=== PATIENT | female | born 1960 | race Caucasian/White ===

== ENCOUNTER 2024-04-17 16:23 | Inpatient (IN) | payer OTHER ==
[~2024-04-17] VITALS: Ht 152.4 cm; Wt 54.0 kg
[2024-04-17 17:15] LABS: BASOPHILS % (AUTO) 0.5 % (0.0-2.0); EOSINOPHILS # (AUTO) 0.3 K/uL (0.0-0.7); EOSINOPHILS % (AUTO) 2.6 % (0.0-6.0); HEMATOCRIT 39 % (33-45); HEMOGLOBIN 13.1 g/dL (11.5-14.8); LYMPHOCYTES % (AUTO) 10.5 % (20.0-44.0); MEAN CORPUSCULAR HEMOGLOBIN 29 PG (26.0-33.0); MEAN CORPUSCULAR HGB CONC 34 g/dl (31.0-36.0); MEAN CORPUSCULAR VOLUME 85 fL (82-100); MONOCYTES # (AUTO) 0.6 K/uL (0.1-1.30); MONOCYTES % (AUTO) 6.4 % (2.0-12.0); NEUTROPHILS # (AUTO) 7.7 K/uL (1.8-8.9); PLATELET COUNT (AUTO) 298 K/uL (150-450); RED BLOOD CELL COUNT(AUTO) 4.55 MIL/uL (4.0-5.2); RED CELL DISTRIBUTION WIDTH 13.7 % (11.5-15.0); WHITE BLOOD COUNT (AUTO) 9.6 K/uL (4.3-11.0)
[2024-04-17 17:29] LABS: INR 1.13 (0.91-1.10); PARTIAL THROMBOPLASTIN TIME 27.5 SEC (24.3-34.3); PROTHROMBIN TIME 11.9 SECS (9.2-11.1)
[2024-04-17 17:30] LABS: CALCIUM, SERUM 10.3 mg/dL (8.5-10.1); CARBON DIOXIDE 27 mmol/L (21-32); CHLORIDE 103 mmol/L (98-107); CREATININE 1.2 mg/dL (0.6-1.3); GLUCOSE 98 mg/dL (74-106); POTASSIUM 4.3 mmol/L (3.5-5.1); SODIUM SERUM 139 mmol/L (136-145); UREA NITROGEN, BLOOD 22 mg/dL (7-18)
[2024-04-17 17:42] LABS: ALANINE AMINOTRANSFERASE 13 U/L (12-78); ALBUMIN 2.6 g/dL (3.4-5.0); ALKALINE PHOSPHATASE 225 U/L (46-116); ASPARTATE AMINOTRANSFERASE 19 U/L (15-37); BILIRUBIN,DIRECT 0.2 mg/dL (0.0-0.2); BILIRUBIN,TOTAL 0.6 mg/dL (0.2-1.0); NT-PRO BNP 71 pg/mL (0-125)
[2024-04-17] MEDS ORDERED: IOHEXOL-350 100 ML VIAL IV ONE (17:43)
[2024-04-17] MEDS ORDERED: IV NS 0.9% 250 ML IV ONE (17:43)
[2024-04-17] MEDS ORDERED: AMLO5TAB4 PO (18:50)
[2024-04-17] MEDS ORDERED: LEVO500T90 PO (18:50)
[2024-04-17] MEDS ORDERED: POTA-88 PO (18:50)
[2024-04-17] MEDS ORDERED: CEFTRIAXONE 1GM BAG (ER ONLY) 50 ML IV ONE (18:57)
[2024-04-17] MEDS: IV NS 0.9% 1,000 ML BAG IV ONE (19:03)
[2024-04-17] MEDS: CEFTRIAXONE 1GM BAG (ER ONLY) 50 ML IV ONE (19:05)
[2024-04-17] MEDS: AZITHROMYCIN 500 MG in IV D5W 250 ML IV ONE (19:30)
[2024-04-17] MEDS ORDERED: ONDANSETRON HCL/PF 4 MG/2 ML VIAL IVP PRN (22:00)
[2024-04-17] MEDS ORDERED: MAGNESIUM HYDROXIDE 30 ML UDC PO PRN (22:00)
[2024-04-17] MEDS ORDERED: Z GUARD REMEDY 4 OZ OINT TP PRN (22:00)
[2024-04-17] MEDS ORDERED: ZOLPIDEM TARTRATE 5 MG TABLET PO PRN (22:00)
[2024-04-17 22:40] VITALS: BP 114/47; TEMP 98.6; O2SAT 96
[2024-04-17] MEDS ORDERED: CEFEPIME 1 GM VIAL ONE (23:24)
[2024-04-17] MEDS: CEFEPIME 1 GM in IV D5W 50 ML IV SCH (23:36)
[2024-04-18] MEDS: IV 1/2NS 1000 ML 1,000 ML IV PRN (00:20)
[2024-04-18 04:19] VITALS: BP 114/47; TEMP 98.6; O2SAT 93
[2024-04-18 07:55] LABS: CALCIUM, SERUM 9.1 mg/dL (8.5-10.1); CREATININE 1.1 mg/dL (0.6-1.3); MAGNESIUM 2.4 mg/dL (1.8-2.4); PHOSPHORUS 3.5 mg/dL (2.5-4.9)
[2024-04-18 07:59] LABS: BASOPHILS % (AUTO) 0.4 % (0.0-2.0); EOSINOPHILS # (AUTO) 0.3 K/uL (0.0-0.7); EOSINOPHILS % (AUTO) 3.7 % (0.0-6.0); HEMATOCRIT 34 % (33-45); HEMOGLOBIN 11.5 g/dL (11.5-14.8); LYMPHOCYTES % (AUTO) 11.9 % (20.0-44.0); MEAN CORPUSCULAR HEMOGLOBIN 29 PG (26.0-33.0); MEAN CORPUSCULAR HGB CONC 34 g/dl (31.0-36.0); MEAN CORPUSCULAR VOLUME 85 fL (82-100); MONOCYTES # (AUTO) 0.8 K/uL (0.1-1.30); MONOCYTES % (AUTO) 8.7 % (2.0-12.0); NEUTROPHILS # (AUTO) 6.5 K/uL (1.8-8.9); NEUTROPHILS % (AUTO) 75.3 % (43.0-81.0); PLATELET COUNT (AUTO) 274 K/uL (150-450); RED CELL DISTRIBUTION WIDTH 13.7 % (11.5-15.0); WHITE BLOOD COUNT (AUTO) 8.7 K/uL (4.3-11.0)
[2024-04-18 08:00] VITALS: BP 114/59; TEMP 98.6; O2SAT 92
[2024-04-18] MEDS: AMLODIPINE BESYLATE 5 MG TABLET PO SCH (08:36)
[2024-04-18] MEDS: ENOXAPARIN SODIUM 40 MG/0.4 ML DISP.SYRIN SQ SCH (10:30)
[2024-04-18 16:00] VITALS: BP 111/91; TEMP 98.6; O2SAT 94
[2024-04-18 20:00] VITALS: BP 114/63; TEMP 98.4; O2SAT 91
[2024-04-18] MEDS: BENZONATATE 100 MG CAPSULE PO PRN (22:07)
[2024-04-19] MEDS: ACETAMINOPHEN 325 MG TABLET PO PRN (01:54)
[2024-04-19 07:00] VITALS: BP 133/72; TEMP 98.1; O2SAT 91
[2024-04-19] MEDS ORDERED: CT SWABBABLE VALVE TRANS SET 1 EA INFUS.SET MC ONE (12:22)
[2024-04-19] MEDS ORDERED: IOHEXOL-300 100 ML VIAL IV ONE (12:22)
[2024-04-19] MEDS ORDERED: IV NS 0.9% 250 ML IV ONE (12:23)
[2024-04-19 16:32] VITALS: BP 120/70; TEMP 99.3; O2SAT 93
[2024-04-19 21:00] VITALS: BP 107/52; TEMP 99.5; O2SAT 90
[2024-04-20] VITALS (23 sets, daily range): BP systolic 91–145; BP diastolic 56–91; TEMP 97–98.9; O2SAT 88–98
[2024-04-20 01:19] LABS: ABG BASE EXCESS -1.3 mmol/L (-2.0-3.0); ABG OXYGEN SATURATION 94.1 % (94.0-98.0); ABG PCO2 33.7 mmHg (32.0-45.0); ABG PH 7.437 (7.350-7.450); ABG PO2 72.3 mmHg (83.0-108.0); ABG TOTAL HEMOGLOBIN 13.8 G/dL (12.0-16.0); COHb 0.4 % (0.5-1.5); MetHb 0.2 % (0.0-1.5); O2Hb 93.5 % (94.0-97.0); SITE, ABG LEFT RADIAL
[2024-04-20 08:08] LABS: CANCER AG, 15-3 45.3 U/mL (0.0-25.0)
[2024-04-20 08:51] LABS: BASOPHILS % (AUTO) 0.4 % (0.0-2.0); EOSINOPHILS # (AUTO) 0.1 K/uL (0.0-0.7); EOSINOPHILS % (AUTO) 0.8 % (0.0-6.0); HEMATOCRIT 38 % (33-45); LYMPHOCYTES # (AUTO) 1.3 K/uL (0.8-4.8); LYMPHOCYTES % (AUTO) 9.6 % (20.0-44.0); MEAN CORPUSCULAR HEMOGLOBIN 29 PG (26.0-33.0); MEAN CORPUSCULAR HGB CONC 34 g/dl (31.0-36.0); MEAN CORPUSCULAR VOLUME 84 fL (82-100); MONOCYTES # (AUTO) 0.7 K/uL (0.1-1.30); MONOCYTES % (AUTO) 5.3 % (2.0-12.0); NEUTROPHILS # (AUTO) 11.1 K/uL (1.8-8.9); NEUTROPHILS % (AUTO) 83.9 % (43.0-81.0); PLATELET COUNT (AUTO) 301 K/uL (150-450); RED BLOOD CELL COUNT(AUTO) 4.55 MIL/uL (4.0-5.2); RED CELL DISTRIBUTION WIDTH 13.5 % (11.5-15.0); WHITE BLOOD COUNT (AUTO) 13.2 K/uL (4.3-11.0)
[2024-04-20 10:26] LABS: ABG BASE EXCESS 1.8 mmol/L (-2.0-3.0); ABG OXYGEN SATURATION 90.6 % (94.0-98.0); ABG PH 7.473 (7.350-7.450); ABG PO2 57.2 mmHg (83.0-108.0); ABG TOTAL HEMOGLOBIN 13.2 G/dL (12.0-16.0); COHb 0.2 % (0.5-1.5); MetHb 0.2 % (0.0-1.5); O2Hb 90.2 % (94.0-97.0); SITE, ABG LEFT RADIAL
[2024-04-20] MEDS ORDERED: VANCOMYCIN 1 GM in IV D5W 250 ML IV ONE (14:00)
[2024-04-20 17:24] LABS: CALCIUM, SERUM 9.5 mg/dL (8.5-10.1); POTASSIUM 3.5 mmol/L (3.5-5.1)
[2024-04-20] MEDS: VANCOMYCIN 1 GM in IV D5W 250 ML IV ONE (18:04)
[2024-04-21] VITALS (32 sets, daily range): BP systolic 94–135; BP diastolic 50–123; TEMP 98–98.8; O2SAT 85–93
[2024-04-21] MEDS: VANCOMYCIN 500 MG in IV D5W 100ml IV SCH (05:03)
[2024-04-21 05:23] LABS: CALCIUM, SERUM 9.9 mg/dL (8.5-10.1); CREATININE 0.9 mg/dL (0.6-1.3); POTASSIUM 3.3 mmol/L (3.5-5.1)
[2024-04-21] MEDS: CEFEPIME 2 GM in IV D5W 100 ML IV SCH (10:30)
[2024-04-21] MEDS: POTASSIUM CHLORIDE 20 MEQ TAB.PRT.SR PO SCH (12:23)
[2024-04-21] MEDS: LEVOFLOXACIN (250MG) 250 MG TABLET PO SCH (14:10)
[2024-04-21 16:07] LABS: BASOPHILS # (AUTO) 0.1 K/uL (0.0-0.2); BASOPHILS % (AUTO) 0.7 % (0.0-2.0); EOSINOPHILS # (AUTO) 0.2 K/uL (0.0-0.7); HEMATOCRIT 38 % (33-45); HEMOGLOBIN 12.8 g/dL (11.5-14.8); LYMPHOCYTES # (AUTO) 0.7 K/uL (0.8-4.8); LYMPHOCYTES % (AUTO) 6.9 % (20.0-44.0); MEAN CORPUSCULAR HEMOGLOBIN 28 PG (26.0-33.0); MEAN CORPUSCULAR HGB CONC 34 g/dl (31.0-36.0); MEAN CORPUSCULAR VOLUME 83 fL (82-100); MONOCYTES # (AUTO) 0.7 K/uL (0.1-1.30); MONOCYTES % (AUTO) 6.4 % (2.0-12.0); NEUTROPHILS # (AUTO) 8.5 K/uL (1.8-8.9); PLATELET COUNT (AUTO) 332 K/uL (150-450); RED BLOOD CELL COUNT(AUTO) 4.56 MIL/uL (4.0-5.2); RED CELL DISTRIBUTION WIDTH 13.7 % (11.5-15.0); WHITE BLOOD COUNT (AUTO) 10.2 K/uL (4.3-11.0)
[2024-04-21 16:36] LABS: D-DIMER 3.66 mg/L(FEU (0.17-0.50); INR 1.22 (0.91-1.10); PROTHROMBIN TIME 12.8 SECS (9.2-11.1)
[2024-04-21] MEDS: VANCOMYCIN 750 MG in IV D5W 250 ML IV SCH (17:36)
[2024-04-21] MEDS: MEROPENEM 1 G in IV NS 0.9% 100 ML IV ONE (21:06)
[2024-04-22] VITALS (36 sets, daily range): BP systolic 82–149; BP diastolic 45–113; TEMP 98–98.3; O2SAT 81–94
[2024-04-22 06:02] LABS: BASOPHILS % (AUTO) 0.1 % (0.0-2.0); EOSINOPHILS # (AUTO) 0.1 K/uL (0.0-0.7); EOSINOPHILS % (AUTO) 1.2 % (0.0-6.0); HEMATOCRIT 40 % (33-45); HEMOGLOBIN 13.1 g/dL (11.5-14.8); LYMPHOCYTES # (AUTO) 0.9 K/uL (0.8-4.8); LYMPHOCYTES % (AUTO) 8.1 % (20.0-44.0); MEAN CORPUSCULAR HEMOGLOBIN 28 PG (26.0-33.0); MEAN CORPUSCULAR HGB CONC 33 g/dl (31.0-36.0); MEAN CORPUSCULAR VOLUME 86 fL (82-100); MONOCYTES # (AUTO) 0.6 K/uL (0.1-1.30); MONOCYTES % (AUTO) 5.7 % (2.0-12.0); NEUTROPHILS # (AUTO) 9.3 K/uL (1.8-8.9); NEUTROPHILS % (AUTO) 84.9 % (43.0-81.0); PLATELET COUNT (AUTO) 321 K/uL (150-450); RED BLOOD CELL COUNT(AUTO) 4.64 MIL/uL (4.0-5.2); RED CELL DISTRIBUTION WIDTH 13.7 % (11.5-15.0)
[2024-04-22 06:04] LABS: INR 1.18 (0.91-1.10); PARTIAL THROMBOPLASTIN TIME 28.5 SEC (24.3-34.3); PROTHROMBIN TIME 12.4 SECS (9.2-11.1)
[2024-04-22 06:18] LABS: D-DIMER 7.17 mg/L(FEU (0.17-0.50)
[2024-04-22 06:32] LABS: CALCIUM, SERUM 10.6 mg/dL (8.5-10.1); CREATININE 0.9 mg/dL (0.6-1.3); POTASSIUM 3.9 mmol/L (3.5-5.1)
[2024-04-22] MEDS: MEROPENEM 1 G in IV NS 0.9% 100 ML IV SCH (08:49)
[2024-04-22] MEDS: POLYETHYLENE GLYCOL 3350 17 GM POWD.PACK PO SCH (21:00)
[2024-04-23] VITALS (31 sets, daily range): BP systolic 105–158; BP diastolic 76–121; TEMP 97.7–98.2; O2SAT 83–97
[2024-04-23] MEDS: MAG HYDROX/AL HYDROX/SIMETH 30 ML UDC PO PRN (05:33)
[2024-04-23 05:41] LABS: CALCIUM, SERUM 10.3 mg/dL (8.5-10.1); POTASSIUM 3.3 mmol/L (3.5-5.1)
[2024-04-23] MEDS: POTASSIUM CHLORIDE 20 MEQ TAB.PRT.SR PO ONE (06:49)
[2024-04-23 09:00] LABS: ABG BASE EXCESS 3.5 mmol/L (-2.0-3.0); ABG OXYGEN SATURATION 77.6 % (94.0-98.0); ABG PCO2 38.7 mmHg (32.0-45.0); ABG PH 7.467 (7.350-7.450); ABG PO2 41.4 mmHg (83.0-108.0); ABG TOTAL HEMOGLOBIN 13.5 G/dL (12.0-16.0); COHb 0.3 % (0.5-1.5); MetHb 0.1 % (0.0-1.5); O2Hb 77.3 % (94.0-97.0); SITE, ABG LEFT BRACHIAL
[2024-04-24] VITALS (24 sets, daily range): BP systolic 90–162; BP diastolic 60–117; TEMP 97.5–98.6; O2SAT 88–98
[2024-04-24 05:12] LABS: CALCIUM, SERUM 10.3 mg/dL (8.5-10.1); CREATININE 0.9 mg/dL (0.6-1.3); POTASSIUM 3.7 mmol/L (3.5-5.1)
[2024-04-24] MEDS: IV D5W 1,000 ML IV SCH (09:07)
[2024-04-24] MEDS: VANCOMYCIN 500 MG in IV D5W 100ml IV SCH (11:19)
[2024-04-25] VITALS (26 sets, daily range): BP systolic 65–151; BP diastolic 36–105; TEMP 97.8–98.3; O2SAT 90–99
[2024-04-25 04:42] LABS: BASOPHILS % (AUTO) 0.2 % (0.0-2.0); EOSINOPHILS # (AUTO) 0.3 K/uL (0.0-0.7); EOSINOPHILS % (AUTO) 1.6 % (0.0-6.0); HEMATOCRIT 39 % (33-45); HEMOGLOBIN 12.7 g/dL (11.5-14.8); LYMPHOCYTES % (AUTO) 6.1 % (20.0-44.0); MEAN CORPUSCULAR HEMOGLOBIN 28 PG (26.0-33.0); MEAN CORPUSCULAR HGB CONC 33 g/dl (31.0-36.0); MEAN CORPUSCULAR VOLUME 85 fL (82-100); MONOCYTES # (AUTO) 0.8 K/uL (0.1-1.30); MONOCYTES % (AUTO) 4.6 % (2.0-12.0); NEUTROPHILS # (AUTO) 14.3 K/uL (1.8-8.9); NEUTROPHILS % (AUTO) 87.5 % (43.0-81.0); PLATELET COUNT (AUTO) 296 K/uL (150-450); RED CELL DISTRIBUTION WIDTH 13.7 % (11.5-15.0); WHITE BLOOD COUNT (AUTO) 16.4 K/uL (4.3-11.0)
[2024-04-25 05:04] LABS: INR 1.41 (0.91-1.10); PROTHROMBIN TIME 14.6 SECS (9.2-11.1)
[2024-04-25 05:09] LABS: D-DIMER 8.77 mg/L(FEU (0.17-0.50)
[2024-04-25 05:14] LABS: CALCIUM, SERUM 9.9 mg/dL (8.5-10.1); CREATININE 0.8 mg/dL (0.6-1.3); POTASSIUM 3.3 mmol/L (3.5-5.1)
[2024-04-25] MEDS: POTASSIUM CL. PREMIX PERIPHER. 50 ML IV SCH (06:41)
[2024-04-25] MEDS: IV D5W 1,000 ML IV ONE (12:03)
[2024-04-25] MEDS: KETOROLAC TROMETHAMINE 15 MG/ML VIAL IV PRN (15:11)
[2024-04-25 20:40] LABS: APPEARANCE,URINE CLEAR (CLEAR); BILIRUBIN,URINE NEGATIVE (NEGATIVE); BLOOD, URINE TRACE-INTA Ery/uL (NEGATIVE); COLOR,URINE YELLOW (YELLOW); KETONES,URINE NEGATIVE (NEGATIVE); LEUKOCYTE ESTERASE ,URINE NEGATIVE (NEGATIVE); NITRITE, URINE NEGATIVE (NEGATIVE); PROTEIN,URINE TRACE mg/dl (NEGATIVE); UGLUCOSE 2+ mg/dL (NEGATIVE); UROBILINOGEN,URINE 0.2 EU/dL (0.2)
[2024-04-25 20:48] LABS: CREATININE, URINE 70.1 MG/DL (30.0-125.0); URINE TOTAL PROTEIN 54.5 mg/dL (0-11.9)
[2024-04-25 21:06] LABS: *MYCOPLASMA PNEUMONIAE IgG <100 U/mL (0-99); *MYCOPLASMA PNEUMONIAE IgM <770 U/mL (0-769)
[2024-04-25 22:25] LABS: ADD URINE CULTURE NO; BACTERIA,URINE Few /HPF (None Seen); RBC,URINE 0-2 /HPF (0-2); SQUAMOUS EPITHELIAL CELL,UR Few /HPF (None Seen); WBC,URINE 0-2 /HPF (0-3)
[2024-04-25 22:26] LABS: MUCUS,URINE Rare /LPF (None Seen)
[2024-04-25 22:48] LABS: EOSINOPHIL,URINE None Seen
[2024-04-26] VITALS (25 sets, daily range): BP systolic 87–143; BP diastolic 10–108; TEMP 97.5–98.3; O2SAT 85–95
[2024-04-26 05:10] LABS: BASOPHILS % (AUTO) 0.1 % (0.0-2.0); EOSINOPHILS # (AUTO) 0.4 K/uL (0.0-0.7); EOSINOPHILS % (AUTO) 2.4 % (0.0-6.0); HEMATOCRIT 42 % (33-45); HEMOGLOBIN 13.6 g/dL (11.5-14.8); LYMPHOCYTES # (AUTO) 1.2 K/uL (0.8-4.8); LYMPHOCYTES % (AUTO) 7.9 % (20.0-44.0); MEAN CORPUSCULAR HEMOGLOBIN 28 PG (26.0-33.0); MEAN CORPUSCULAR HGB CONC 33 g/dl (31.0-36.0); MEAN CORPUSCULAR VOLUME 85 fL (82-100); MONOCYTES # (AUTO) 0.5 K/uL (0.1-1.30); MONOCYTES % (AUTO) 3.6 % (2.0-12.0); NEUTROPHILS # (AUTO) 12.6 K/uL (1.8-8.9); PLATELET COUNT (AUTO) 222 K/uL (150-450); RED CELL DISTRIBUTION WIDTH 13.8 % (11.5-15.0); WHITE BLOOD COUNT (AUTO) 14.7 K/uL (4.3-11.0)
[2024-04-26 05:23] LABS: CALCIUM, SERUM 9.3 mg/dL (8.5-10.1); CREATININE 0.8 mg/dL (0.6-1.3); POTASSIUM 4.1 mmol/L (3.5-5.1)
[2024-04-26 05:32] LABS: INR 1.56 (0.91-1.10); PARTIAL THROMBOPLASTIN TIME 28.6 SEC (24.3-34.3); PROTHROMBIN TIME 16.1 SECS (9.2-11.1)
[2024-04-26 05:33] LABS: D-DIMER 11.62 mg/L(FEU (0.17-0.50)
[2024-04-26 08:51] LABS: ABG BASE EXCESS 2.2 mmol/L (-2.0-3.0); ABG OXYGEN SATURATION 87.4 % (94.0-98.0); ABG PCO2 35.8 mmHg (32.0-45.0); ABG PH 7.471 (7.350-7.450); ABG PO2 50.9 mmHg (83.0-108.0); ABG TOTAL HEMOGLOBIN 14.1 G/dL (12.0-16.0); COHb 0.3 % (0.5-1.5); MetHb 0.3 % (0.0-1.5); O2Hb 86.9 % (94.0-97.0); SITE, ABG LEFT RADIAL
[2024-04-26] MEDS ORDERED: TPN/PPN PER PHARMACY IV PRN (09:30)
[2024-04-26] MEDS: PPN BAG #1 IV SCH (10:43)
[2024-04-26] MEDS: ZITHROMAX 500 MG/250 ML D5W IV SCH (11:07)
[2024-04-26] MEDS: Sodium Phosphate 15 MMOL in IV NS 0.9% 245 ML IV SCH (13:58)
[2024-04-26 17:10] LABS: LEGIONELLA PNEUMOPHILIA AB Non Reactive (Non Reactive)
[2024-04-27] VITALS (72 sets, daily range): BP systolic 64–191; BP diastolic 30–174; TEMP 98–98.7; O2SAT 77–92
[2024-04-27] MEDS: VANCOMYCIN 750 MG in IV D5W 250 ML IV SCH (00:06)
[2024-04-27] MEDS: hydrALAZINE HCL IV 20 MG VIAL IV PRN (01:13)
[2024-04-27] MEDS: ACETAMINOPHEN 650 MG/SUPP.RECT RC PRN (02:03)
[2024-04-27 05:09] LABS: VIT D, 25-HYDROXY 20.3 ng/mL (30.0-100.0)
[2024-04-27 05:41] LABS: BASOPHILS % (AUTO) 0.1 % (0.0-2.0); EOSINOPHILS # (AUTO) 0.1 K/uL (0.0-0.7); EOSINOPHILS % (AUTO) 0.8 % (0.0-6.0); HEMATOCRIT 40 % (33-45); HEMOGLOBIN 13.2 g/dL (11.5-14.8); LYMPHOCYTES % (AUTO) 6.6 % (20.0-44.0); MEAN CORPUSCULAR HEMOGLOBIN 28 PG (26.0-33.0); MEAN CORPUSCULAR HGB CONC 33 g/dl (31.0-36.0); MEAN CORPUSCULAR VOLUME 84 fL (82-100); MONOCYTES # (AUTO) 0.6 K/uL (0.1-1.30); MONOCYTES % (AUTO) 3.9 % (2.0-12.0); NEUTROPHILS # (AUTO) 13.7 K/uL (1.8-8.9); NEUTROPHILS % (AUTO) 88.6 % (43.0-81.0); PLATELET COUNT (AUTO) 235 K/uL (150-450); RED BLOOD CELL COUNT(AUTO) 4.72 MIL/uL (4.0-5.2); RED CELL DISTRIBUTION WIDTH 13.6 % (11.5-15.0); WHITE BLOOD COUNT (AUTO) 15.5 K/uL (4.3-11.0)
[2024-04-27 05:42] LABS: CALCIUM, SERUM 8.7 mg/dL (8.5-10.1); CREATININE 0.7 mg/dL (0.6-1.3); MAGNESIUM 2.4 mg/dL (1.8-2.4); PHOSPHORUS 2.6 mg/dL (2.5-4.9); POTASSIUM 4.2 mmol/L (3.5-5.1)
[2024-04-27] MEDS: FAT EMULSION 20% 500 ML in PREMIX 1 EA IV SCH (09:00)
[2024-04-27] MEDS: PROPOFOL 100 ML IV PRN ×2 (09:30→18:07)
[2024-04-27] MEDS: PHENYLEPHRINE 50 MG in IV NS 0.9% 245 ML IV PRN (10:56)
[2024-04-27] MEDS: PPN BAG #2 IV SCH (12:14)
[2024-04-27 13:39] LABS: ABG BASE EXCESS 3.3 mmol/L (-2.0-3.0); ABG OXYGEN SATURATION 85.3 % (94.0-98.0); ABG PCO2 33.6 mmHg (32.0-45.0); ABG PH 7.507 (7.350-7.450); ABG PO2 47.8 mmHg (83.0-108.0); ABG TOTAL HEMOGLOBIN 13.1 G/dL (12.0-16.0); COHb 0.4 % (0.5-1.5); MetHb 0.3 % (0.0-1.5); O2Hb 84.7 % (94.0-97.0); PEEP,BG 10 cm H2O; SITE, ABG RIGHT RADIAL; VT, ABG 470 mL
[2024-04-27] MEDS ORDERED: ETOMIDATE 2 MG/ML VIAL IV ONE (16:06)
[2024-04-28] VITALS (99 sets, daily range): BP systolic 85–126; BP diastolic 32–72; TEMP 98–98.7; O2SAT 84–92
[2024-04-28 05:38] LABS: BASOPHILS % (AUTO) 0.1 % (0.0-2.0); EOSINOPHILS # (AUTO) 1.1 K/uL (0.0-0.7); EOSINOPHILS % (AUTO) 5.3 % (0.0-6.0); HEMATOCRIT 34 % (33-45); HEMOGLOBIN 11.2 g/dL (11.5-14.8); LYMPHOCYTES % (AUTO) 9.9 % (20.0-44.0); MEAN CORPUSCULAR HEMOGLOBIN 28 PG (26.0-33.0); MEAN CORPUSCULAR HGB CONC 33 g/dl (31.0-36.0); MEAN CORPUSCULAR VOLUME 85 fL (82-100); MONOCYTES # (AUTO) 0.8 K/uL (0.1-1.30); MONOCYTES % (AUTO) 3.7 % (2.0-12.0); NEUTROPHILS # (AUTO) 16.5 K/uL (1.8-8.9); PLATELET COUNT (AUTO) 292 K/uL (150-450); RED BLOOD CELL COUNT(AUTO) 3.99 MIL/uL (4.0-5.2); RED CELL DISTRIBUTION WIDTH 13.9 % (11.5-15.0); WHITE BLOOD COUNT (AUTO) 20.4 K/uL (4.3-11.0)
[2024-04-28 05:49] LABS: INR 1.1 (0.91-1.10); PARTIAL THROMBOPLASTIN TIME 31.4 SEC (24.3-34.3); PROTHROMBIN TIME 11.6 SECS (9.2-11.1)
[2024-04-28 05:52] LABS: CALCIUM, SERUM 9.3 mg/dL (8.5-10.1); CREATININE 1.1 mg/dL (0.6-1.3); MAGNESIUM 2.1 mg/dL (1.8-2.4); PHOSPHORUS 2.4 mg/dL (2.5-4.9); POTASSIUM 3.1 mmol/L (3.5-5.1)
[2024-04-28 06:02] LABS: D-DIMER 7.43 mg/L(FEU (0.17-0.50)
[2024-04-28 08:42] LABS: ABG BASE EXCESS 1.8 mmol/L (-2.0-3.0); ABG OXYGEN SATURATION 86.1 % (94.0-98.0); ABG PCO2 36.9 mmHg (32.0-45.0); ABG PH 7.457 (7.350-7.450); ABG PO2 52.3 mmHg (83.0-108.0); COHb 0.2 % (0.5-1.5); MetHb 0.3 % (0.0-1.5); O2Hb 85.7 % (94.0-97.0); SITE, ABG RIGHT BRACHIAL; VT, ABG 450 mL
[2024-04-28] MEDS: POTASSIUM CL. PREMIX PERIPHER. 50 ML IV SCH (09:04)
[2024-04-28] MEDS ORDERED: CHOLECALCIFEROL (VITAMIN D 3) 400 UNIT TABLET PO SCH (11:30)
[2024-04-28 12:17] LABS: ABG BASE EXCESS 2.5 mmol/L (-2.0-3.0); ABG OXYGEN SATURATION 85.5 % (94.0-98.0); ABG PCO2 45.5 mmHg (32.0-45.0); ABG PH 7.403 (7.350-7.450); ABG PO2 56.4 mmHg (83.0-108.0); ABG TOTAL HEMOGLOBIN 13.1 G/dL (12.0-16.0); COHb 0.3 % (0.5-1.5); O2Hb 85.2 % (94.0-97.0); PEEP,BG 14 cm H2O; SITE, ABG RIGHT BRACHIAL; VT, ABG 400 mL
[2024-04-28] MEDS: PPN BAG #3 IV SCH (13:40)
[2024-04-28] MEDS: PANTOPRAZOLE 40 MG VIAL IV SCH (13:41)
[2024-04-28] MEDS: Sodium Phosphate 15 MMOL in IV NS 0.9% 245 ML IV SCH (14:52)
[2024-04-29] VITALS (54 sets, daily range): BP systolic 77–123; BP diastolic 31–84; TEMP 97.6–99.5; O2SAT 77–91
[2024-04-29 06:02] LABS: INR 1.02 (0.91-1.10); PARTIAL THROMBOPLASTIN TIME 32.8 SEC (24.3-34.3); PROTHROMBIN TIME 10.8 SECS (9.2-11.1)
[2024-04-29 06:47] LABS: D-DIMER 7.64 mg/L(FEU (0.17-0.50)
[2024-04-29 06:56] LABS: CALCIUM, SERUM 9.1 mg/dL (8.5-10.1); CREATININE 1.2 mg/dL (0.6-1.3); MAGNESIUM 2.2 mg/dL (1.8-2.4); PHOSPHORUS 5.8 mg/dL (2.5-4.9)
[2024-04-29 08:43] LABS: BASOPHILS % (AUTO) 0.2 % (0.0-2.0); EOSINOPHILS % (AUTO) 5.4 % (0.0-6.0); HEMATOCRIT 36 % (33-45); HEMOGLOBIN 11.5 g/dL (11.5-14.8); LYMPHOCYTES # (AUTO) 1.4 K/uL (0.8-4.8); LYMPHOCYTES % (AUTO) 7.6 % (20.0-44.0); MEAN CORPUSCULAR HEMOGLOBIN 28 PG (26.0-33.0); MEAN CORPUSCULAR HGB CONC 32 g/dl (31.0-36.0); MEAN CORPUSCULAR VOLUME 87 fL (82-100); MONOCYTES # (AUTO) 0.8 K/uL (0.1-1.30); MONOCYTES % (AUTO) 4.4 % (2.0-12.0); NEUTROPHILS # (AUTO) 15.4 K/uL (1.8-8.9); NEUTROPHILS % (AUTO) 82.4 % (43.0-81.0); PLATELET COUNT (AUTO) 260 K/uL (150-450); RED BLOOD CELL COUNT(AUTO) 4.14 MIL/uL (4.0-5.2); RED CELL DISTRIBUTION WIDTH 14.3 % (11.5-15.0); WHITE BLOOD COUNT (AUTO) 18.7 K/uL (4.3-11.0)
[2024-04-29 10:58] LABS: ABG BASE EXCESS -5.1 mmol/L (-2.0-3.0); ABG OXYGEN SATURATION 86.4 % (94.0-98.0); ABG PCO2 71.9 mmHg (32.0-45.0); ABG PH 7.159 (7.350-7.450); ABG PO2 61.3 mmHg (83.0-108.0); ABG TOTAL HEMOGLOBIN 13.5 G/dL (12.0-16.0); COHb 0.3 % (0.5-1.5); MetHb 0.4 % (0.0-1.5); O2Hb 85.8 % (94.0-97.0); SITE, ABG RIGHT BRACHIAL; VT, ABG 350 mL
[2024-04-29] MEDS ORDERED: DEXTROSE 50%-WATER 50 ML DISP.SYRIN IV PRN (14:00)
[2024-04-29] MEDS: PPN BAG #4 IV SCH (14:37)
[2024-04-29] MEDS: BLOOD SUGAR DIAGNOSTIC 1 EACH STRIP IN SCH (17:11)
[2024-04-30] VITALS (95 sets, daily range): BP systolic 75–149; BP diastolic 36–83; TEMP 98.2–100.1; O2SAT 74–88
[2024-04-30 05:09] LABS: BASOPHILS % (AUTO) 0.2 % (0.0-2.0); EOSINOPHILS # (AUTO) 0.4 K/uL (0.0-0.7); EOSINOPHILS % (AUTO) 2.1 % (0.0-6.0); HEMATOCRIT 35 % (33-45); HEMOGLOBIN 11.4 g/dL (11.5-14.8); LYMPHOCYTES % (AUTO) 5.1 % (20.0-44.0); MEAN CORPUSCULAR HEMOGLOBIN 28 PG (26.0-33.0); MEAN CORPUSCULAR HGB CONC 33 g/dl (31.0-36.0); MEAN CORPUSCULAR VOLUME 86 fL (82-100); MONOCYTES # (AUTO) 0.9 K/uL (0.1-1.30); NEUTROPHILS # (AUTO) 16.5 K/uL (1.8-8.9); NEUTROPHILS % (AUTO) 87.6 % (43.0-81.0); PLATELET COUNT (AUTO) 257 K/uL (150-450); RED CELL DISTRIBUTION WIDTH 14.2 % (11.5-15.0); WHITE BLOOD COUNT (AUTO) 18.8 K/uL (4.3-11.0)
[2024-04-30 05:21] LABS: CALCIUM, SERUM 8.3 mg/dL (8.5-10.1); CREATININE 1.4 mg/dL (0.6-1.3); PHOSPHORUS 5.5 mg/dL (2.5-4.9); POTASSIUM 4.5 mmol/L (3.5-5.1)
[2024-04-30] MEDS: INSULIN REGULAR, HUMAN 100 UNIT/ML 3 ML VIAL SQ PRN (06:02)
[2024-04-30 06:12] LABS: EOSINOPHILS % (MANUAL) 3 % (0-4); LYMPHOCYTES % (MANUAL) 7 % (16-48); MONOCYTES % (MANUAL) 9 % (0-11.0); MYELOCYTES % 1 % (0-0); NEUTROPHILS % (MANUAL) 80 (42-76); PLATELET ESTIMATE ADEQUATE
[2024-04-30] MEDS: PPN BAG #5 IV SCH (10:55)
[2024-04-30 10:58] LABS: ABG OXYGEN SATURATION 81.5 % (94.0-98.0); ABG PCO2 65.3 mmHg (32.0-45.0); ABG PH 7.109 (7.350-7.450); ABG PO2 54.5 mmHg (83.0-108.0); ABG TOTAL HEMOGLOBIN 12.8 G/dL (12.0-16.0); COHb 0.1 % (0.5-1.5); MetHb 0.4 % (0.0-1.5); O2Hb 81.1 % (94.0-97.0); PEEP,BG 16 cm H2O; SITE, ABG LEFT RADIAL; VT, ABG 350 mL
[2024-04-30 14:12] LABS: ABG BASE EXCESS -10.1 mmol/L (-2.0-3.0); ABG OXYGEN SATURATION 84.3 % (94.0-98.0); ABG PH 7.117 (7.350-7.450); ABG PO2 54.3 mmHg (83.0-108.0); ABG TOTAL HEMOGLOBIN 12.8 G/dL (12.0-16.0); COHb 0.3 % (0.5-1.5); MetHb 0.6 % (0.0-1.5); O2Hb 83.5 % (94.0-97.0); PEEP,BG 16 cm H2O; SITE, ABG RIGHT BRACHIAL
[2024-04-30] MEDS ORDERED: Sodium Bicarbonate 150 MEQ in IV NS 0.9% 1,000 ML IV SCH (14:30)
[2024-04-30] MEDS: Sodium Bicarbonate 150 MEQ in IV D5W 1,000 ML IV SCH (16:14)
[2024-05-01] VITALS (95 sets, daily range): BP systolic 58–130; BP diastolic 35–78; TEMP 97.2–99.1; O2SAT 56–83
[2024-05-01 05:04] LABS: BASOPHILS # (AUTO) 0.1 K/uL (0.0-0.2); BASOPHILS % (AUTO) 0.5 % (0.0-2.0); EOSINOPHILS # (AUTO) 0.2 K/uL (0.0-0.7); EOSINOPHILS % (AUTO) 1.1 % (0.0-6.0); HEMATOCRIT 32 % (33-45); HEMOGLOBIN 10.7 g/dL (11.5-14.8); LYMPHOCYTES # (AUTO) 1.2 K/uL (0.8-4.8); LYMPHOCYTES % (AUTO) 6.1 % (20.0-44.0); MEAN CORPUSCULAR HEMOGLOBIN 29 PG (26.0-33.0); MEAN CORPUSCULAR HGB CONC 34 g/dl (31.0-36.0); MEAN CORPUSCULAR VOLUME 85 fL (82-100); MONOCYTES # (AUTO) 1.1 K/uL (0.1-1.30); MONOCYTES % (AUTO) 5.7 % (2.0-12.0); NEUTROPHILS # (AUTO) 17.1 K/uL (1.8-8.9); NEUTROPHILS % (AUTO) 86.6 % (43.0-81.0); PLATELET COUNT (AUTO) 286 K/uL (150-450); RED BLOOD CELL COUNT(AUTO) 3.73 MIL/uL (4.0-5.2); RED CELL DISTRIBUTION WIDTH 14.1 % (11.5-15.0); WHITE BLOOD COUNT (AUTO) 19.7 K/uL (4.3-11.0)
[2024-05-01 05:21] LABS: CREATININE 2.5 mg/dL (0.6-1.3); PHOSPHORUS 6.3 mg/dL (2.5-4.9); POTASSIUM 4.2 mmol/L (3.5-5.1)
[2024-05-01] MEDS: PPN BAG #6 IV SCH (08:29)
[2024-05-01] MEDS: ENOXAPARIN SODIUM 30 MG/0.3 ML DISP.SYRIN SQ SCH (09:26)
[2024-05-01] MEDS: NOREPINEPHRINE 8 MG in IV D5W 242 ML IV PRN (20:56)
[2024-05-02] VITALS (72 sets, daily range): BP systolic 81–132; BP diastolic 41–74; TEMP 98–99; O2SAT 58–81
[2024-05-02] MEDS: PPN #7 IV SCH (03:35)
[2024-05-02 04:43] LABS: BASOPHILS # (AUTO) 0.1 K/uL (0.0-0.2); BASOPHILS % (AUTO) 0.6 % (0.0-2.0); EOSINOPHILS # (AUTO) 0.3 K/uL (0.0-0.7); EOSINOPHILS % (AUTO) 1.5 % (0.0-6.0); HEMATOCRIT 32 % (33-45); HEMOGLOBIN 10.8 g/dL (11.5-14.8); LYMPHOCYTES # (AUTO) 1.2 K/uL (0.8-4.8); MEAN CORPUSCULAR HEMOGLOBIN 28 PG (26.0-33.0); MEAN CORPUSCULAR HGB CONC 34 g/dl (31.0-36.0); MEAN CORPUSCULAR VOLUME 84 fL (82-100); MONOCYTES # (AUTO) 1.3 K/uL (0.1-1.30); MONOCYTES % (AUTO) 6.7 % (2.0-12.0); NEUTROPHILS # (AUTO) 17.1 K/uL (1.8-8.9); NEUTROPHILS % (AUTO) 85.2 % (43.0-81.0); PLATELET COUNT (AUTO) 308 K/uL (150-450); RED BLOOD CELL COUNT(AUTO) 3.83 MIL/uL (4.0-5.2); WHITE BLOOD COUNT (AUTO) 20.1 K/uL (4.3-11.0)
[2024-05-02 05:14] LABS: INR 0.96 (0.91-1.10); PROTHROMBIN TIME 10.2 SECS (9.2-11.1)
[2024-05-02 05:16] LABS: D-DIMER 8.48 mg/L(FEU (0.17-0.50)
[2024-05-02 05:25] LABS: CALCIUM, SERUM 7.4 mg/dL (8.5-10.1); CREATININE 3.3 mg/dL (0.6-1.3); MAGNESIUM 1.8 mg/dL (1.8-2.4); PHOSPHORUS 6.8 mg/dL (2.5-4.9); POTASSIUM 4.1 mmol/L (3.5-5.1)
[2024-05-02] MEDS: PANTOPRAZOLE 40 MG/PACK PACK NG SCH (09:56)
[2024-05-02 10:18] LABS: ABG BASE EXCESS -5.7 mmol/L (-2.0-3.0); ABG OXYGEN SATURATION 70.9 % (94.0-98.0); ABG PCO2 56.9 mmHg (32.0-45.0); ABG PH 7.215 (7.350-7.450); ABG PO2 42.4 mmHg (83.0-108.0); ABG TOTAL HEMOGLOBIN 11.8 G/dL (12.0-16.0); MetHb 0.3 % (0.0-1.5); O2Hb 70.7 % (94.0-97.0); PEEP,BG 18 cm H2O; SITE, ABG ALINE
[2024-05-02] MEDS ORDERED: MORPHINE SULFATE PF DRIP 100 MG in IV D5W 96 ML IV PRN (16:30)
[2024-05-02] MEDS ORDERED: MORPHINE SULFATE PF DRIP 100 MG in IV D5W 96 ML IV STA (17:14)
[2024-05-02] MEDS: MORPHINE SULFATE INJ 2 MG/ML DISP.SYRIN IV STA (17:26)
[2024-05-02] MEDS: MEROPENEM 500MG/NS 50 ML PB IV ONE (18:19)
[2024-05-02] MEDS: MORPHINE SULFATE PF DRIP 100 MG in IV D5W 96 ML IV PRN (18:19)
[2024-05-02] MEDS ORDERED: PPN #8 IV SCH (23:33)
[2024-05-03] MEDS ORDERED: VANCOMYCIN 750 MG in IV D5W 250 ML IV SCH (12:00)
== END 2024-05-02 18:31 | DRG 207 ==
LOC: ER 16:25 → TELE 21:14 → EDBD 21:14 → MED 04-18 00:37 → TELE-TD 04-20 03:59 → ICU 04-20 11:28 → UNDODISIN 05-03 00:52
PROVIDERS: ADMIT Nurse Practitioner Acute Care; ATTEND Internal Medicine
PROC: 5A09557 Assistance with Respiratory Ventilation, Greater than 96 Consecutive Hours, Continuous Positive Airway Pressure (ICD-10-PCS; principal; 2024-04-23)
PROC: 5A1955Z Respiratory Ventilation, Greater than 96 Consecutive Hours (ICD-10-PCS; 2024-04-27)
PROC: 0BH17EZ Insertion of Endotracheal Airway into Trachea, Via Natural or Artificial Opening (ICD-10-PCS; 2024-04-27)
PROC: 05HF33Z Insertion of Infusion Device into Left Cephalic Vein, Percutaneous Approach (ICD-10-PCS; 2024-04-30)
DX: J15.69 Pneumonia due to other Gram-negative bacteria (principal); J96.01 Acute respiratory failure with hypoxia; E44.0 Moderate protein-calorie malnutrition; N17.9 Acute kidney failure, unspecified; C78.01 Secondary malignant neoplasm of right lung; G93.40 Encephalopathy, unspecified; E87.0 Hyperosmolality and hypernatremia; E87.1 Hypo-osmolality and hyponatremia; R62.7 Adult failure to thrive; Z66 Do not resuscitate; Z20.822 Contact with and (suspected) exposure to COVID-19; I12.9 Hypertensive chronic kidney disease with stage 1 through stage 4 chronic kidney disease, or unspecified chronic kidney disease; N18.9 Chronic kidney disease, unspecified; Z85.038 Personal history of other malignant neoplasm of large intestine; Z85.118 Personal history of other malignant neoplasm of bronchus and lung; Z90.49 Acquired absence of other specified parts of digestive tract; Z90.11 Acquired absence of right breast and nipple; Z79.890 Hormone replacement therapy; Z79.899 Other long term (current) drug therapy; E88.09 Other disorders of plasma-protein metabolism, not elsewhere classified; Z99.81 Dependence on supplemental oxygen; Z98.86 Personal history of breast implant removal; C26.9 Malignant neoplasm of ill-defined sites within the digestive system; M89.8X9 Other specified disorders of bone, unspecified site; E86.0 Dehydration; E83.52 Hypercalcemia; D64.9 Anemia, unspecified; E87.6 Hypokalemia; E86.9 Volume depletion, unspecified
CPT/HCPCS: 31720; 36415; 36600; 71045-TC; 80048-TC; 80061-TC; 80076-TC; 80202-TC; 81001; 82040-TC; 82306; 82378; 82570-TC; 82803-TC; 82962-TC; 83605-TC; 83735-TC; 83880; 83935-TC; 83970; 84100-TC; 84300-TC; 84478-TC; 84484-TC; 85025-TC; 85396; 85730-TC; 86300; 86713; 86738; 86850-TC; 87040-TC; 87081-TC; 93970-TC; 93971-TC; 94003-TC; 94640-TC; 94799-TC; A4216; A4223; A9563; G0378; J0360; J0456; J0692; J0696; J1650; J1815; J1885; J2185; J2270; J2274; J2470; J3370; J3371; J3480; J3490; J7030; J7040; J7042; J7050; J7060; J7070; Q9967